=== PATIENT | female | born 1960 | race Caucasian/White ===

== ENCOUNTER 2019-02-04 06:32 | Emergency (ER) | payer MEDICAID, OTHER ==
[~2019-02-04] VITALS: Ht 165.1 cm; Wt 74.0 kg
[2019-02-04] MEDS ORDERED: DIAZEPAM 5 MG TABLET PO ONE (07:00)
[2019-02-04] MEDS ORDERED: KETOROLAC 60MG/2ML VIAL IM ONE (07:00)
[2019-02-04 09:00] VITALS: BP 120/60
== END 2019-02-04 09:00 | disposition home or self-care (01) ==
LOC: ER 06:32
DX: S39.012A Strain of muscle, fascia and tendon of lower back, initial encounter (principal); I10 Essential (primary) hypertension; X50.1XXA Overexertion from prolonged static or awkward postures, initial encounter; Y93.89 Activity, other specified; Y92.89 Other specified places as the place of occurrence of the external cause; Y99.8 Other external cause status
CPT/HCPCS: 72100; 96372; 99283; J1885

== ENCOUNTER 2023-01-01 09:27 | Emergency (ER) | payer MEDICAID, OTHER ==
[~2023-01-01] VITALS: Ht 167.6 cm; Wt 78.0 kg
[2023-01-01 09:29] VITALS: O2SAT 98
[2023-01-01] MEDS ORDERED: LIDO700A15 TP (12:27)
[2023-01-01] MEDS ORDERED: T3 PO (12:27)
[2023-01-01] MEDS ORDERED: LIDOCAINE 5% PATCH TOP SCH (12:30)
[2023-01-01 13:16] VITALS: BP 145/87; PULSE 75; RESP 16; TEMP 97.9
== END 2023-01-01 13:19 | disposition home or self-care (01) ==
LOC: ER 09:27
DX: M54.32 Sciatica, left side (principal); G89.29 Other chronic pain; E11.9 Type 2 diabetes mellitus without complications; I10 Essential (primary) hypertension; Z00.00 Encounter for general adult medical examination without abnormal findings
CPT/HCPCS: 72131; 99284